=== PATIENT | female | born 1985 | race Caucasian/White ===

== ENCOUNTER 2024-01-14 14:15 | Outpatient (AMB) | payer MEDICAID, SELFPAY ==
--- NOTE | 2024-01-14 14:17 | A.OFFVIS_ITS ---
Vital Signs 01/14/24 14:34 Height 5 ft 1 in Weight 122 lb 4 oz BMI 23.1 BP 116/78 Blood Pressure Location Lt brachial Position Sitting Respiration 16 Pulse 78 Pulse Source Pulse Oximeter Pulse Oximetry (%) 96 Oxygen Delivery Method Room Air Intake Visit Reasons: Other General symptoms and sings Intake Note: Patient comes in for initial visit was referred by Arlet Ritchie. Reports pain 3-4/10. Allergies No Known Allergies Allergy (Verified 01/14/24 14:23) HPI Comments Details: Yudi is very pleasant 38 years old female who presents in my office with complain on pain in the back and pain in bilateral knees. Reports the pain in the knee entire lower back. He reports the pain in her knees since she was 14 years old. She reports pain in back started in 2011. She was under care of primary care physician she never had any images of the lumbar spine or knees. She reports her pain today as 5/10. She reports that because of her pain she can not sleep normally can not do activities of daily living she can take care of herself, but she can not function normally. She reports that movements aggravate her pain and oral medications make her pain better. She reports that pain is constant without changes and in terms of tissue damage her pain is hurt burning, scalding, searing, tingling, stinging, sickening, suffocating, cool, called, freezing sensation. She had physical therapy with [facility] and she received epidural steroid injections with this office. She also had chiropractic manipulations in the past. She reports all this measures were not effective for her pain. She reports massage therapy was not effective for her pain. She never received any injections in her knees. She had MRI of the lumbar spine which demonstrated degenerative disc disease and spondylosis of the lumbar spine (the full report unfortunately is not available for me today) and she had knee x-ray which demonstrated mild right knee patellofemoral compartment joint space narrowing. She reports that she takes kratom for pain. Her past medical history is significant for headaches heart palpitations arthritis chronic liver disease and asthma. Her past surgical history significant for hysterectomy in 2010. Social history she smokes cigarettes 1 pack per day for her entire life, she drinks alcohol in significant chronic amounts she drinks 2 cups of coffee a day and she used cannabis in the past [facility] Social History (Updated 01/14/24 @ 14:25 by Dona Shelton) Alcohol intake: former Patient Tobacco Use Status: Never used Tobacco Review of Systems Const All systems reviewed & are unremarkable except as noted in HPI and below ENT Reports Normal hearing present Card Reports no additional complaints Resp Reports no additional complaints GI Reports no additional complaints Musc Reports as per HPI Neuro Reports no additional complaints, Reports Normal hearing present, Denies Abnormal speech present, Denies confusion and Denies Sensory deficit (Neuro) Psych Denies confusion Endo Reports no additional complaints Physical Exam Vital Signs: Last Vital Signs Pulse 78 01/14/24 14:34 Resp 16 01/14/24 14:34 BP 116/78 01/14/24 14:34 Pulse Ox 96 01/14/24 14:34 Oxygen Delivery Method Room Air 01/14/24 14:34 BMI result Body Mass Index 23.1 Const General: no acute distress; No confusion Orientation/consciousness: patient oriented x3 and No confusion Eyes General: appearance normal, both eyes and all related structures Pupils: Equal, round and reactive pupils present EOM: EOMs intact bilaterally Neck Neck: Yes full ROM Chest Chest palpation & inspection: normal inspection of the chest Resp Effort & Inspection: normal respiratory effort, able to speak in complete sentences, normal respiratory pattern, no audible wheezes and no cough Cardio Jugular venous distension: no JVD GI Inspection: Yes normal to inspection Back/Spine/Pelvis Other: She is able to stand on bilateral tiptoes in bilateral heels without difficulty, she is able to lift great toe in separation of the rest of the toes. This demonstrates normal function of L4 L5 and S1 innervation. She is able to flex herself forward but has difficulty with flexing herself backwards. Loading test is positive bilaterally. Valsalva maneuver is negative for pain increase. No tenderness on palpation in paraspinal spinal region of the lumbar spine. No tenderness on palpation in projection of the sacroiliac joint. SLR is negative. Stinchfield test is negative as well. Ciro test is negative. Neuro General: patient oriented x3, gait normal and No confusion Cranial nerves: Yes CN's II-XII intact bilaterally, Yes Equal, round and reactive pupils present, Yes Normal hearing present and Yes Ability to bilaterally elevate shoulders present Speech: No Abnormal speech present Gait exam (Neuro): Normal gait present Motor exam (neuro): 5/5 motor strength present throughout Sensory Exam: No Sensory deficit (Neuro) Extrem Other: Crepitus on palpation of the bilateral knees with motion. Range of motion is preserved bilaterally. General: No pedal edema Psych Speech and movement: Normal speech and movement present Affect: normal affect Attitude: cooperative Thought process: Normal thought process present Thought content: Normal thought content present Insight: Good insight present (Psych) Judgement: Good judgement present (Psych) Assessment & Plan Assessment & Plan (1) Spondylosis of lumbar region without myelopathy or radiculopathy: Code(s): M47.816 - Spondylosis without myelopathy or radiculopathy, lumbar region Category: Medical (2) Osteoarthritis of knees, bilateral: Code(s): M17.0 - Bilateral primary osteoarthritis of knee Category: Medical (3) Chronic pain syndrome: Code(s): G89.4 - Chronic pain syndrome Category: Medical Plan I will schedule this patient for diagnostic bilateral medial branch block L3-L4 dorsal ramus L5. I will also schedule her for dural in bilateral knee injection. I will see this patient after diagnostic medial branch block here in the office. The nature of liver condition will be further evaluated, amount of alcohol she drinks needs to be explored, the amount of cannabis she smokes needs to be established. All of this were not evaluated today however this pertinent conditions could be significant for further management of this patient. Patient Instructions: I here by testify that I spent 45 minutes in conversation with this patient as well as planning her care and organizing this note. Coding Level of Care Code New Pt Level 4 (44398) Diagnoses Spondylosis of lumbar region without myelopathy or radiculopathy M47.816 Osteoarthritis of knees, bilateral M17.0 Chronic pain syndrome G89.4
[2024-01-14 14:34] VITALS: BP 116/78; PULSE 78; RESP 16; O2SAT 96; BMI 23.1
== END 2024-01-14 14:52 | disposition home or self-care (01) ==
PROVIDERS: PCP Internal Medicine; Visit Provider Anesthesiology
DX: M47.816 Spondylosis without myelopathy or radiculopathy, lumbar region (principal); M17.0 Bilateral primary osteoarthritis of knee; G89.4 Chronic pain syndrome
CPT/HCPCS: 99204

== ENCOUNTER → 2024-01-14 14:15 | Outpatient (BNVA) | payer MEDICAID, SELFPAY | PROVIDERS: PCP Internal Medicine; Visit Provider Anesthesiology | DX: M17.0 Bilateral primary osteoarthritis of knee (principal); M47.816 Spondylosis without myelopathy or radiculopathy, lumbar region; G89.4 Chronic pain syndrome | CPT/HCPCS: 99202 ==

== ENCOUNTER 2024-03-23 06:16 | Outpatient (REF) | payer MEDICAID, SELFPAY ==
--- NOTE | ~2024-03-23 | FL_ITS ---
EXAMINATION: FLUORO GUIDANCE IN TREATMENT ROOM CLINICAL INFORMATION: Spondylosis without myelopathy or radiculopathy, lumbar region. Bilateral lumbar injections. COMPARISON: None available. TECHNIQUE: Fluoroscopy supervised by: Dr. Mina Schilling. Fluoroscopy time: 0.5 minutes. Cumulative Dose: 3.94 mGy. DAP: 0.0684 mGy-m2 (milligray-meter squared). Images: 12. FINDINGS: Transforaminal needles are present at 2 contiguous locations in the lumbar spine with contrast injected at each of the 4 sites which appears to be epidural. FL/FL guidance in treatment room IMPRESSION: Fluoroscopy during procedure. Please see procedure report for additional information. Electronically signed by: Geoffrey Billingsley MD 05/19/2024 04:18 PM [facility]
== END 2024-03-23 06:17 | disposition home or self-care (01) ==
LOC: CF 06:16
PROVIDERS: Visit Provider Anesthesiology
DX: M47.816 Spondylosis without myelopathy or radiculopathy, lumbar region (principal); M17.0 Bilateral primary osteoarthritis of knee; G89.4 Chronic pain syndrome
CPT/HCPCS: 64493; 64494; J2003; J2795; Q9967

== ENCOUNTER 2024-03-23 13:47 | Outpatient (AMB) | payer MEDICAID, SELFPAY ==
[2024-03-23 13:58] VITALS: BP 106/72; PULSE 83; O2SAT 98
--- NOTE | 2024-03-23 13:58 | A.OFFVIS_ITS ---
Vital Signs 03/23/24 13:58 03/23/24 14:29 BP 106/72 116/74 Blood Pressure Location Lt brachial Lt brachial Position Sitting Sitting Pulse 83 73 Pulse Source Pulse Oximeter Pulse Oximeter Pulse Oximetry (%) 98 97 Oxygen Delivery Method Room Air Room Air Intake Visit Reasons: BILATERAL DIAGNOSTIC L3, L4, DRL5 MBB Allergies No Known Allergies Allergy (Verified 01/14/24 14:23) PFS Social History (Updated 01/14/24 @ 14:25 by Dona Shelton) Alcohol intake: former Patient Tobacco Use Status: Never used Tobacco Physical Exam Vital Signs: Last Vital Signs Pulse 73 03/23/24 14:29 BP 116/74 03/23/24 14:29 Pulse Ox 97 03/23/24 14:29 Oxygen Delivery Method Room Air 03/23/24 14:29 Assessment & Plan Assessment & Plan (1) Spondylosis of lumbar region without myelopathy or radiculopathy: Code(s): M47.816 - Spondylosis without myelopathy or radiculopathy, lumbar region Category: Medical (2) Osteoarthritis of knees, bilateral: Code(s): M17.0 - Bilateral primary osteoarthritis of knee Category: Medical (3) Chronic pain syndrome: Code(s): G89.4 - Chronic pain syndrome Category: Medical Plan: Diagnostic medial branch block L3,L4 dorsal ramus L5 bilateral.? ? ?Informed consent was explained to the patient. All questions were explained and? answered.? The patient was taken inside the operating room where she was positioned prone on the operating table. Time-out was performed delineating correct site, side, the nature of the procedure, patient's allergy, . All operating room staff was participating in OR time-out procedure. ? ? The lower back was prepped with ChloraPrep and draped with sterile towels.? C- arm was brought over the operating field and sq picture of L4-, L5 vertebra and S1 AREA were delineated on the screen.? Point of interest were delineated as confluence of superior articular process of L4 and L5 vertebra bilaterally with corresponding transverse processes as well as confluence of the sacral alae bilaterally with superior articular process of S1.? The projection of the point of interest to the skin were injected with the small amount of local anesthetic lidocaine 2% mixed with ropivacaine 0.5% 1-1 approcimately 1 cc.? After that 22 gauge 3.5 inch spinal needle was driven sequentially to the points of interest in tunnel vision fashion. After needles gently contacted the bone at the point of interests the needle was injected with small amount of the contrast.? The injection of the contrast did not demonstrate any intravascular or intrathecal spread of the contrast.? After that injection of the? ropivacaine 0.5%-1cc was performed at each needle location.??after that the needles were removed and Bandaids were applied. ? Upon completion of the injections? needle was? removed and sterile Band-Aids were applied.? The patient tolerated procedure very well. Plan I will schedule this patient for diagnostic bilateral medial branch block L3-L4 dorsal ramus L5. I will also schedule her for dural in bilateral knee injection. I will see this patient after diagnostic medial branch block here in the office. The nature of liver condition will be further evaluated, amount of alcohol she drinks needs to be explored, the amount of cannabis she smokes needs to be established. All of this were not evaluated today however this pertinent conditions could be significant for further management of this patient. Orders: Orders FL guidance in treatment room Today M47.816 - Spondylosis without myelopathy or radiculopathy, lumbar region Coding Level of Care Code Procedure Only Diagnoses Spondylosis of lumbar region without myelopathy or radiculopathy M47.816 Osteoarthritis of knees, bilateral M17.0 Chronic pain syndrome G89.4
[2024-03-23 14:29] VITALS: BP 116/74; PULSE 73; O2SAT 97
== END 2024-03-23 14:34 | disposition home or self-care (01) ==
LOC: HO.PMCPRC 13:47
PROVIDERS: PCP Internal Medicine; Visit Provider Anesthesiology
DX: M47.816 Spondylosis without myelopathy or radiculopathy, lumbar region (principal); M17.0 Bilateral primary osteoarthritis of knee; G89.4 Chronic pain syndrome
CPT/HCPCS: 64493; 64494

== ENCOUNTER 2024-03-31 12:50 | Outpatient (AMB) | payer MEDICAID, SELFPAY ==
--- NOTE | 2024-03-31 12:57 | MHC.OFFVIS ---
Vital Signs 03/31/24 12:59 Height 5 ft 1 in Weight 118 lb BMI 22.3 BP 120/68 Blood Pressure Location Lt brachial Position Sitting Respiration 15 Pulse 64 Pulse Source Pulse Oximeter Pulse Oximetry (%) 98 Oxygen Delivery Method Room Air Intake Visit Reasons: BILATERAL DIAGNOSTIC L3, L4, DRL5 MBB Allergies No Known Allergies Allergy (Verified 03/31/24 13:00) Medication List - Last Reconciled 03/31/24 by Cristel Jenkins LPN albuterol sulfate 90 mcg/actuation (Ventolin HFA) inhalation clonidine HCl 0.2 mg PO BID duloxetine 20 mg PO DAILY HPI Comments Details: Yudi is back in my office with complains on intermittent pain in the lower back. Day she reports her pain is three to 4/10. She went for diagnostic bilateral L3, L4, dorsal ramus L5 medial branch block on 03/23/2024. Before her procedure her pain was 4/10. After the procedure she reported only 50% pain improvement to 2/10. Unfortunately I can not consider this as a diagnostic test. I will schedule this patient for MRI of the lumbar spine. As of her pain in the knees I recommended to perform knee injections however the patient insurance company which is [employer] [facility] version of the [employer] would not allow me to perform any knee injections for her. I recommended the patient to change her insurance for [employer] if she can not. I will see her in 5 weeks and discuss results of the MRI. Prior: complain on pain in the back and pain in bilateral knees. Reports the pain in the knee entire lower back. He reports the pain in her knees since she was 14 years old. She reports pain in back started in 2011. She was under care of primary care physician she never had any images of the lumbar spine or knees. She reports her pain today as 5/10. She had physical therapy with [facility] and she received epidural steroid injections with this office. She also had chiropractic manipulations in the past. She reports all this measures were not effective for her pain. She reports massage therapy was not effective for her pain. She never received any injections in her knees. She had MRI of the lumbar spine which demonstrated degenerative disc disease and spondylosis of the lumbar spine (the full report unfortunately is not available for me today) and she had knee x-ray which demonstrated mild right knee patellofemoral compartment joint space narrowing. She reports that she takes kratom for pain. Her past medical history is significant for headaches heart palpitations arthritis chronic liver disease and asthma. Her past surgical history significant for hysterectomy in 2010. Social history she smokes cigarettes 1 pack per day for her entire life, she drinks alcohol in significant chronic amounts she drinks 2 cups of coffee a day and she used cannabis in the past [facility] Social History (Updated 01/14/24 @ 14:25 by Dona Shelton) Alcohol intake: former Patient Tobacco Use Status: Never used Tobacco Review of Systems Const All systems reviewed & are unremarkable except as noted in HPI and below ENT Reports Normal hearing present Neuro Reports Normal hearing present, Denies Abnormal speech present, Denies confusion and Denies Sensory deficit (Neuro) Psych Denies confusion Physical Exam Vital Signs: Last Vital Signs Pulse 64 03/31/24 12:59 Resp 15 03/31/24 12:59 BP 120/68 03/31/24 12:59 Pulse Ox 98 03/31/24 12:59 Oxygen Delivery Method Room Air 03/31/24 12:59 BMI result Body Mass Index 22.3 Const General: no acute distress; No confusion Orientation/consciousness: patient oriented x3 and No confusion Eyes General: appearance normal, both eyes and all related structures Pupils: Equal, round and reactive pupils present EOM: EOMs intact bilaterally Neck Neck: Yes full ROM Chest Chest palpation & inspection: normal inspection of the chest Resp Effort & Inspection: normal respiratory effort, able to speak in complete sentences, normal respiratory pattern, no audible wheezes and no cough Cardio Jugular venous distension: no JVD GI Inspection: Yes normal to inspection Back/Spine/Pelvis Other: She is able to stand on bilateral tiptoes in bilateral heels without difficulty, she is able to lift great toe in separation of the rest of the toes. This demonstrates normal function of L4 L5 and S1 innervation. She is able to flex herself forward but has difficulty with flexing herself backwards. Loading test is positive bilaterally. Valsalva maneuver is negative for pain increase. No tenderness on palpation in paraspinal spinal region of the lumbar spine. No tenderness on palpation in projection of the sacroiliac joint. SLR is negative. Stinchfield test is negative as well. Ciro test is negative. Neuro General: patient oriented x3, gait normal and No confusion Cranial nerves: Yes CN's II-XII intact bilaterally, Yes Equal, round and reactive pupils present, Yes Normal hearing present and Yes Ability to bilaterally elevate shoulders present Speech: No Abnormal speech present Gait exam (Neuro): Normal gait present Motor exam (neuro): 5/5 motor strength present throughout Sensory Exam: No Sensory deficit (Neuro) Extrem Other: Crepitus on palpation of the bilateral knees with motion. Range of motion is preserved bilaterally. General: No pedal edema Psych Speech and movement: Normal speech and movement present Affect: normal affect Attitude: cooperative Thought process: Normal thought process present Thought content: Normal thought content present Insight: Good insight present (Psych) Judgement: Good judgement present (Psych) Assessment & Plan Assessment & Plan (1) Spondylosis of lumbar region without myelopathy or radiculopathy: Code(s): M47.816 - Spondylosis without myelopathy or radiculopathy, lumbar region Category: Medical (2) Osteoarthritis of knees, bilateral: Code(s): M17.0 - Bilateral primary osteoarthritis of knee Category: Medical (3) Chronic pain syndrome: Code(s): G89.4 - Chronic pain syndrome Category: Medical (4) Vertebrogenic low back pain: Code(s): M54.51 - Vertebrogenic low back pain Category: Medical Plan The diagnostic bilateral medial branch block L3-L4 dorsal ramus L5 resulted only in 50% pain improvement at the best. I can not take it as a diagnostic test. I will send her for repeat MRI of the lumbar spine. Possibility exists of vertebra genic pain syndrome as her pain generators.. I was planning to do dural an injection into her bilateral knees however her insurance company is not covering this procedure. Her insurance is [facility] version of Medicaid. I recommended her to switch to traditional [facility].. I will see this patient after diagnostic medial branch block here in the office. The nature of liver condition will be further evaluated, amount of alcohol she drinks needs to be explored, the amount of cannabis she smokes needs to be established. All of this were not evaluated today however this pertinent conditions could be significant for further management of this patient. Orders: Orders MR lumbar spine wo con Today M47.816 - Spondylosis without myelopathy or radiculopathy, lumbar region, M54.51 - Vertebrogenic low back pain Coding Level of Care Code Est Pt Level 3 (49372) Diagnoses Spondylosis of lumbar region without myelopathy or radiculopathy M47.816 Osteoarthritis of knees, bilateral M17.0 Chronic pain syndrome G89.4 Vertebrogenic low back pain M54.51
[2024-03-31 12:59] VITALS: BP 120/68; PULSE 64; RESP 15; O2SAT 98; BMI 22.3
== END 2024-03-31 13:12 | disposition home or self-care (01) ==
PROVIDERS: PCP Internal Medicine; Visit Provider Anesthesiology
DX: M47.816 Spondylosis without myelopathy or radiculopathy, lumbar region (principal); M17.0 Bilateral primary osteoarthritis of knee; G89.4 Chronic pain syndrome; M54.51 Vertebrogenic low back pain
CPT/HCPCS: 99213

== ENCOUNTER → 2024-03-31 12:50 | Outpatient (BNVA) | payer MEDICAID, SELFPAY | PROVIDERS: PCP Internal Medicine; Visit Provider Anesthesiology | DX: M47.816 Spondylosis without myelopathy or radiculopathy, lumbar region (principal); M17.0 Bilateral primary osteoarthritis of knee; M54.51 Vertebrogenic low back pain; G89.4 Chronic pain syndrome | CPT/HCPCS: 99212 ==

== ENCOUNTER → 2024-05-17 15:54 | Outpatient (BNV) | payer MEDICAID, SELFPAY | PROVIDERS: PCP Internal Medicine; Visit Provider Radiology Diagnostic Radiology | DX: M51.27 Other intervertebral disc displacement, lumbosacral region (principal) | CPT/HCPCS: 72148 ==

== ENCOUNTER 2024-05-17 16:00 | Outpatient (REF) | payer MEDICAID, SELFPAY ==
--- NOTE | ~2024-05-17 | MR_ITS ---
EXAMINATION: MR LUMBAR SPINE WITHOUT CONTRAST CLINICAL INFORMATION: Low back pain. No injury or fall. COMPARISON: None available. TECHNIQUE: MRI of the lumbar spine was obtained using routine sequences without contrast. FINDINGS: There is maintained lumbar lordosis. The vertebral heights and alignment is normal. There is mild loss of disc height at all disc levels with mild disc desiccation change at the L5-S1 disc level. There At T12-L1 disc level there is a left paracentral disc herniation narrowing the left neural foramina. The right neural foramina is patent. There is no spinal canal stenosis. At L1-2, L2-3 disc levels is mild bulge with minimal indentation of central thecal sac but no spinal canal stenosis. The neural foramina are patent bilaterally. The facet joints are symmetrical and normal. At L3-4 disc level there is a left paracentral disc bulge with spinal canal stenosis. The bulge is eccentric laterally to the left likely small disc herniation narrowing the left neural foramina. The neural foramina are patent bilaterally. At L4-5 disc level there is a broad-based diffuse bulge with a superimposed right lateral disc herniation migrating superiorly into the neural foramina and moderate narrowing the neural foramina. It is best visualized on sagittal sequence #6 image 7 out of 20. The left neural foramina is patent. At L5-S1 disc level there is a central disc bulge with posterior annular tear but no spinal canal stenosis. The neural foramina are patent. There is no nerve root impingement. The bone marrow signal, intraspinal signal and paravertebral soft tissues are normal. Conus medullaris terminates at L1 and appears normal in morphology. MR/MR lumbar spine wo con IMPRESSION: Degenerative disc bulges L3-4, L4-5 and L5-S1 disc levels without spinal canal stenosis. The bulge is eccentric laterally to the level left likely small disc herniation at L3-4 disc level narrowing the left neural foramina. Minimal bulges at L1-2 and L2-3 disc level. Posterior annular tear L5-S1 disc level. There is a right lateral disc herniation with upward migration into the right neural foramina impinging on right L4 nerve root at the L4-5 disc level. Electronically signed by: Todd Askew MD 05/18/2024 08:04 AM [facility]
== END 2024-05-17 16:01 | disposition home or self-care (01) ==
LOC: HO.MRI 16:00
PROVIDERS: PCP Internal Medicine; Visit Provider Anesthesiology
DX: M47.816 Spondylosis without myelopathy or radiculopathy, lumbar region (principal); M54.51 Vertebrogenic low back pain
CPT/HCPCS: 72148